=== PATIENT | male | born 1990 | race Caucasian/White ===

== ENCOUNTER 2023-03-10 08:07 | Outpatient (CLI) | payer OTHER, SELFPAY | END 2023-03-10 08:08 | disposition home or self-care (01) | LOC: NFLDREF 21:57 | PROVIDERS: PCP Family Medicine; Referring Provider Family Medicine; Visit Provider Family Medicine | DX: R53.83 Other fatigue (principal); Z13.220 Encounter for screening for lipoid disorders | CPT/HCPCS: 80053; 80061; 82607; 84443 ==